=== PATIENT | female | born 1950 | race Caucasian/White ===

== ENCOUNTER 2016-11-14 19:41 | Observation (INO) ==
--- NOTE | 2016-11-14 20:04 | Emergency Department Note ---
Disposition Clinical Impression: Altered mental status Qualifiers: Altered mental status type: unspecified Qualified Code(s): R41.82 - Altered mental status, unspecified Drug ingestion, accidental Qualifiers: Encounter type: initial encounter Qualified Code(s): T50.901A - Poisoning by unspecified drugs, medicaments and biological substances, accidental ( unintentional), initial encounter UTI (urinary tract infection) Qualifiers: Urinary tract infection type: site unspecified Disposition: Admitted As Inpatient Condition: Fair Time of Disposition: 22:19 Altered Mental Status HPI - General Chief Complaint: ED Altered Mental Status Stated Complaint: AMS/OD Time Seen by Provider: 11/14/16 19:45 Source: patient, family, EMS Mode of arrival: EMS Limitations: no limitations Nursing Notes Reviewed: Yes Vital Signs Reviewed: Yes - History of Present Illness HPI Narrative: Patient is a 66-year-old female with past history of hypertension and diabetes. She presents today via EMS due to altered mental status. Her son-in-law accompanies her today and provide some of the history as well. EMS states that the patient was at a friend's house, had a headache, took a loose pill that was in her purse for headache and then began having symptoms of altered mental status, slurred speech. On arrival, patient is oriented 3 but is mildly slurring her words, has pinpoint pupils, she says that she thought she took ibuprofen or Tylenol. She denies any other drug use or alcohol use. 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 She currently denies any numbness, tingling, weakness, chest pain, shortness breath, abdominal pain. She does admit to some mild nausea. - Related Data Allergies Allergy/AdvReac Type Severity Reaction Status Date / Time No Known Allergies Allergy Verified 11/14/16 19:55 All systems ED: reviewed and negative except as stated. Past Medical History - Past Medical History Attestation: Yes The following information was validated with the patient. Medical history: Reports: diabetes, hypertension Psychiatric history: Reports: anxiety - Social History Smoking Status: Never smoker Alcohol use: Reports: none Drug use: Reports: none Physical Exam - General Limitations: other General appearance: other (slurring words, slow to respond to questions but oriented times 3) - Head Head exam: atraumatic, normocephalic, normal inspection - Eye Eye exam: Present: PERRL, EOMI, miosis - ENT ENT exam: normal exam, normal oropharynx, mucous membranes moist - Neck Neck exam: Present: normal inspection, full ROM, trachea midline - Chest Chest inspection: Present: normal inspection, symmetric chest wall rise - Respiratory Respiratory exam: Present: normal lung sounds bilaterally. Absent: respiratory distress, wheezes, stridor, accessory muscle use - Cardiovascular Cardiovascular exam: Present: normal rhythm, tachycardia, normal heart sounds - Abdominal Exam Abdominal exam: Present: soft, Non-Tender. Absent: tenderness, distention, guarding, rebound, rigidity - Extremities Exam Extremities exam: Present: normal inspection, full ROM. Absent: tenderness, pedal edema - Back Exam Back exam: Present: normal inspection, full ROM. Absent: tenderness - Neurological Exam Neurological exam: Present: oriented X3, CN II-XII intact, other (Excessively sleepy on exam). Absent: motor sensory deficit - Psychiatric Psychiatric exam: Present: flat affect, other (Excessively sleepy on exam) - Skin Skin exam: Present: warm, dry, intact, normal color Course Course Narrative: Patient is tachycardic and mildly hypertensive on presentation. No focal neurologic deficits. She is oriented 3. However, she is excessively sleepy. Concern for accidental overdose or other drug use at this time. We will obtain altered mental status including urine drug screen, to the head, urinalysis, basic blood work. EKG shows sinus tachycardia with no acute ST elevation or depression. Asymptomatic at this time other than excessive sleepiness. 22:[address] negative for any acute injury and no abnormality. Chest x-ray negative. Basic blood work not concerning. Urine drug screen negative. Troponin negative, TSH within normal limits. EKG showed sinus tachy. UA shows poss UTI, will give rocephin here. Patient was reevaluated. She is still excessively sleepy on exam. Remains oriented 3 but slow responding. No focal neuro deficits on repeat exam. I discussed current status with family member, and they were agreeable with admitting the patient for observation for altered mental status versus possible drug ingestion. The patient had acute drug ingestion, urine drug screen may not be positive. Hospitalist has been paged for admission. 22:36 Hospitalist accepted, requested rocephin for UTI. Chest X-Ray 11/14/16 19:54 IMPRESSION: 1. No active pulmonary disease. D/ / Pedro Gaines MD / Pedro Gaines MD Interpreting Provider: Pedro Gaines MD Head CT 11/14/16 19:54 IMPRESSION: 1. No acute intracranial abnormality. D/ / Pedro Gaines MD / Pedro Gaines MD Interpreting Provider: Pedro Gaines MD Vital Signs Temperature 97.8 F 11/14/16 19:48 Pulse Rate 122 11/14/16 19:48 Respiratory Rate 12 11/14/16 19:48 Blood Pressure 152/94 11/14/16 19:48 O2 Sat by Pulse Oximetry 95 11/14/16 19:48 Temperature 97.4 F L 11/15/16 02:58 Pulse Rate 95 11/15/16 02:58 Respiratory Rate 14 11/15/16 02:58 Blood Pressure 135/88 11/15/16 02:58 O2 Sat by Pulse Oximetry 93 L 11/15/16 02:58 Oxygen Delivery Oxygen Delivery Room Air Altered Mental Status - [facility] Narrative Medical decision making narrative: Patient is tachycardic and mildly hypertensive on presentation. No focal neurologic deficits. She is oriented 3. However, she is excessively sleepy. Concern for accidental overdose or other drug use at this time. We will obtain altered mental status including urine drug screen, to the head, urinalysis, basic blood work. EKG shows sinus tachycardia with no acute ST elevation or depression. Asymptomatic at this time other than excessive sleepiness. 22:[address] negative for any acute injury and no abnormality. Chest x-ray negative. Basic blood work not concerning. Urine drug screen negative. Troponin negative, TSH within normal limits. EKG showed sinus tachy. UA shows poss UTI, will give rocephin here. Patient was reevaluated. She is still excessively sleepy on exam. Remains oriented 3 but slow responding. No focal neuro deficits on repeat exam. I discussed current status with family member, and they were agreeable with admitting the patient for observation for altered mental status versus possible drug ingestion. The patient had acute drug ingestion, urine drug screen may not be positive. Hospitalist has been paged for admission. 22:36 Hospitalist accepted, requested rocephin for UTI. - Medical Records Medical records reviewed: Yes I reviewed the patient's medical records. - Lab Data Lab results reviewed: Yes I reviewed the patient's lab results. Result diagrams: 11/14/16 21:00 11/15/16 04:52 Lab Results 11/14/16 11/14/16 11/14/16 Range/Units 20:44 20:44 21:00 WBC 10.9 (4.3-11.1) K/mcL RBC 4.38 (3.82-4.97) M/mcL Hgb 12.5 (11.5-15.4) g/dL Hct 38.5 (35.3-44.9) % MCV 87.9 (83.0-100.0) fL MCH 28.5 (28.0-33.3) pg MCHC 32.5 (31.6-35.5) g/dL RDW 13.0 (11.5-14.5) % Plt Count 181 (140-400) K/mcL MPV 10.7 (9.4-12.4) fL Immature Gran % 0.3 (0-4) % Seg Neutrophils % 78.3 % Lymphocytes % 15.5 % Monocytes % 5.0 % Eosinophils % 0.6 % Basophils % 0.3 % Neutrophils # 8.5 (1.6-8.9) K/mcL Lymphocytes # 1.7 (0.6-4.6) K/mcL Monocytes # 0.5 (0.0-1.3) K/mcL Eosinophils # 0.1 (0.0-0.6) K/mcL Basophils # 0.0 (0.0-0.2) K/mcL PT (9.4-12.1) Seconds INR APTT (26.0-36.0) Seconds Sodium (136-145) mEq/L Potassium (3.5-4.5) mEq/L Chloride (98-109) mEq/L Carbon Dioxide (19-29) mEq/L BUN (7-20) mg/dL Creatinine (0.57-1.11) mg/dL Est GFR ( Amer) (> 60) Est GFR (Non-Af Amer) (> 60) BUN/Creatinine Ratio (6-26) Glucose (70-99) mg/dL Calculated Osmolality (280-300) Calcium (8.6-10.8) mg/dL Total Bilirubin (0.2-1.2) mg/dL Direct Bilirubin (0.0-0.5) mg/dL Indirect Bilirubin (0.0-1.2) mg/dL AST (5-34) Units/L ALT (0-55) Units/L Alkaline Phosphatase (38-126) Units/L Troponin I (0-0.03) ng/mL Serum Total Protein (6.0-8.3) g/dL Albumin (3.5-5.0) g/dL Globulin (2.4-3.5) g/dL Albumin/Globulin Ratio (1.1-2.2) TSH (0.350-4.840) mcIU/mL Urine Color Yellow (Yellow) Urine Clarity Cloudy A (Clear) Urine pH 6.0 (5.0-8.0) pH Units Ur Specific [place] 1.018 (1.010-1.025) Urine Protein Negative (Neg-Trace) mg/dL Urine Glucose (UA) >=1000 H (Normal) mg/dL Urine Ketones 15 H (Negative) mg/dL Urine Blood Negative (Negative) Urine Nitrite Positive A (Negative) Urine Bilirubin Negative (Negative) Urine Urobilinogen Normal (Normal) mg/dL Ur Leukocyte Esterase Negative (Negative) Urine Microscopic RBC 0-3 (0-3) per hpf Urine Microscopic WBC 15-30 H (0-3) per hpf Ur Squamous Epith Cells Moderate H (None-Few) per lpf Urine Bacteria Many H (None-Few) per hpf Hyaline Casts Moderate H (None-Few) per lpf Ur Culture Indicated? YES A (NO) Urine Opiates Screen Negative (Tyrxem=765) ng/mL Ur Barbiturates Screen Negative (Ylfyat=440) ng/mL Ur Phencyclidine Scrn Negative (Cutoff=25) ng/mL Ur Amphetamines Screen Negative (Ryuvwh=8345) ng/mL U Benzodiazepines Scrn Negative (Uehbjr=997) ng/mL Urine Cocaine Screen Negative (Cutoff= 300) ng/mL U Marijuana (THC) Screen Negative (Cutoff = 50) ng/mL Ethyl Alcohol (0-10) mg/dL 11/14/16 11/14/16 11/14/16 Range/Units 21:00 21:00 21:00 WBC (4.3-11.1) K/mcL RBC (3.82-4.97) M/mcL Hgb (11.5-15.4) g/dL Hct (35.3-44.9) % MCV (83.0-100.0) fL MCH (28.0-33.3) pg MCHC (31.6-35.5) g/dL RDW (11.5-14.5) % Plt Count (140-400) K/mcL MPV (9.4-12.4) fL Immature Gran % (0-4) % Seg Neutrophils % % Lymphocytes % % Monocytes % % Eosinophils % % Basophils % % Neutrophils # (1.6-8.9) K/mcL Lymphocytes # (0.6-4.6) K/mcL Monocytes # (0.0-1.3) K/mcL Eosinophils # (0.0-0.6) K/mcL Basophils # (0.0-0.2) K/mcL PT 11.4 (9.4-12.1) Seconds INR 1.1 APTT 27.0 (26.0-36.0) Seconds Sodium 140 (136-145) mEq/L Potassium 3.8 (3.5-4.5) mEq/L Chloride 105 (98-109) mEq/L Carbon Dioxide 21 (19-29) mEq/L BUN 13 (7-20) mg/dL Creatinine 0.80 (0.57-1.11) mg/dL Est GFR ( Amer) > 60 (> 60) Est GFR (Non-Af Amer) > 60 (> 60) BUN/Creatinine Ratio 16 (6-26) Glucose 277 H (70-99) mg/dL Calculated Osmolality 300 (280-300) Calcium 9.2 (8.6-10.8) mg/dL Total Bilirubin 0.9 (0.2-1.2) mg/dL Direct Bilirubin 0.3 (0.0-0.5) mg/dL Indirect Bilirubin 0.6 (0.0-1.2) mg/dL AST 14 (5-34) Units/L ALT 12 (0-55) Units/L Alkaline Phosphatase 125 (38-126) Units/L Troponin I 0.00 (0-0.03) ng/mL Serum Total Protein 7.1 (6.0-8.3) g/dL Albumin 3.4 L (3.5-5.0) g/dL Globulin 3.7 H (2.4-3.5) g/dL Albumin/Globulin Ratio 0.9 L (1.1-2.2) TSH 1.767 (0.350-4.840) mcIU/mL Urine Color (Yellow) Urine Clarity (Clear) Urine pH (5.0-8.0) pH Units Ur Specific [place] (1.010-1.025) Urine Protein (Neg-Trace) mg/dL Urine Glucose (UA) (Normal) mg/dL Urine Ketones (Negative) mg/dL Urine Blood (Negative) Urine Nitrite (Negative) Urine Bilirubin (Negative) Urine Urobilinogen (Normal) mg/dL Ur Leukocyte Esterase (Negative) Urine Microscopic RBC (0-3) per hpf Urine Microscopic WBC (0-3) per hpf Ur Squamous Epith Cells (None-Few) per lpf Urine Bacteria (None-Few) per hpf Hyaline Casts (None-Few) per lpf Ur Culture Indicated? (NO) Urine Opiates Screen (Uxgzev=138) ng/mL Ur Barbiturates Screen (Olddny=236) ng/mL Ur Phencyclidine Scrn (Cutoff=25) ng/mL Ur Amphetamines Screen (Efuoqx=0176) ng/mL U Benzodiazepines Scrn (Yalcwa=768) ng/mL Urine Cocaine Screen (Cutoff= 300) ng/mL U Marijuana (THC) Screen (Cutoff = 50) ng/mL Ethyl Alcohol < 10 (0-10) mg/dL - Radiology Data Radiology results reviewed: Yes I reviewed the patient's radiology results. Chest X-Ray 11/14/16 19:54 IMPRESSION: 1. No active pulmonary disease. D/ / Pedro Gaines MD / Pedro Gaines MD Interpreting Provider: Pedro Gaines MD Head CT 11/14/16 19:54 IMPRESSION: 1. No acute intracranial abnormality. D/ / Pedro Gaines MD / Pedro Gaines MD Interpreting Provider: Pedro Gaines MD - EKG Data EKG attestation: Yes I reviewed and interpreted this EKG. EKG results narrative: 11/14/2016 at 19:51. Sinus tachycardia. Rate 119. QTC 418. No acute ST elevation or depression. Left axis deviation. Q waves in 2, aVF. S.B.AKatRKat - S.B.A.RKat Situation: Demographics, MOA Background: Presenting Complaint, Relevant PMH, Meds, & Allergies Assessment: Vital Signs, Course and respsone to treatment, Exam Concerns, Patient/Family Expectation, Pertinant Lab Results, Outstanding Labs Recommendation: Barrier(s) to disposition, Recommendation based on pending studies, treatments, or consults S.B.A.RKat Report Given to: Dr. Valderrama SKatBKatAKatRKat Repor Time: 22:37 Attestation Statement - Attestation Attestation: Dr. White note: Patient seen in conjunction with resident Dr. Damon; please see his chart for complete documentation. I spent [id number] time with the patient and I agree with the patient's treatment and disposition. 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
[2016-11-14 20:57] LABS: Bilirubin,Urine Negative (Negative); Blood,Urine Negative (Negative); Clarity,Urine Cloudy (Clear); Color,Urine Yellow (Yellow); Glucose,Urine (UA) >=1000 mg/dL (Normal); Ketones,Urine 15 mg/dL (Negative); Leukocyte Esterase,Urine Negative (Negative); Nitrite,Urine Positive (Negative); Protein,Urine Negative (Neg-Trace); Specific Gravity,Urine 1.018 (1.010-1.025); Urobilinogen,Urine Normal (Normal)
[2016-11-14 21:00] LABS: Bacteria,Urine Many per hpf (None-Few); Hyaline Casts,Urine Moderate per lpf (None-Few); RBC,Urine 0-3 per hpf (0-3); Squamous Epithelial Cell,Urine Moderate per lpf (None-Few); WBC,Urine 15-30 per hpf (0-3)
[2016-11-14 21:04] LABS: Amphetamine Screen,Urine Negative ng/mL (Cutoff=1000); Barbiturate Screen,Urine Negative ng/mL (Cutoff=200); Benzodiazepines Screen,Urine Negative ng/mL (Cutoff=200); Cannabinoid Screen,Urine Negative ng/mL (Cutoff = 50); Cocaine Screen,Urine Negative ng/mL (Cutoff= 300); Opiate Screen,Urine Negative ng/mL (Cutoff=300); Phencyclidine Screen,Urine Negative ng/mL (Cutoff=25)
[2016-11-14 21:13] LABS: Basophils % 0.3 %; Eosinophils # 0.1 K/mcL (0.0-0.6); Eosinophils % 0.6 %; Hematocrit 38.5 % (35.3-44.9); Hemoglobin 12.5 g/dL (11.5-15.4); INR 1.1; Immature Granulocytes % 0.3 % (0-4); Lymphocytes # 1.7 K/mcL (0.6-4.6); Lymphocytes % 15.5 %; Mean Corpuscular HGB Conc 32.5 g/dL (31.6-35.5); Mean Corpuscular Hemoglobin 28.5 pg (28.0-33.3); Mean Corpuscular Volume 87.9 fL (83.0-100.0); Mean Platelet Volume 10.7 fL (9.4-12.4); Monocytes # 0.5 K/mcL (0.0-1.3); Neutrophils # 8.5 K/mcL (1.6-8.9); Platelet Count 181 K/mcL (140-400); Prothrombin Time 11.4 Seconds (9.4-12.1); Red Blood Count 4.38 M/mcL (3.82-4.97); Segmented Neutrophils % 78.3 %
[2016-11-14 21:21] LABS: Alanine Aminotransferase 12 Units/L (0-55); Albumin 3.4 g/dL (3.5-5.0); Albumin/Globulin Ratio 0.9 (1.1-2.2); Alkaline Phosphatase 125 Units/L (38-126); Aspartate Amino Transferase 14 Units/L (5-34); BUN/Creatinine Ratio 16 (6-26); Bilirubin,Direct 0.3 mg/dL (0.0-0.5); Bilirubin,Indirect 0.6 mg/dL (0.0-1.2); Bilirubin,Total 0.9 mg/dL (0.2-1.2); Blood Urea Nitrogen 13 mg/dL (7-20); Calcium 9.2 mg/dL (8.6-10.8); Carbon Dioxide 21 mEq/L (19-29); Chloride 105 mEq/L (98-109); Globulin 3.7 g/dL (2.4-3.5); Glucose 277 mg/dL (70-99); Osmolality,Calculated 300 (280-300); Potassium 3.8 mEq/L (3.5-4.5); Sodium 140 mEq/L (136-145); Total Protein 7.1 g/dL (6.0-8.3); eGFR For African Americans > 60 (> 60); eGFR For Non-African Americans > 60 (> 60)
[2016-11-14 21:22] LABS: Ethanol < 10 mg/dL (0-10)
[2016-11-14 21:41] LABS: Thyroid Stimulating Hormone 1.767 mcIU/mL (0.350-4.840)
[2016-11-14] MEDS ORDERED: CefTRIAXone 1,000 MG VIAL IM ONE (22:37)
[2016-11-15] MEDS ORDERED: Acetaminophen 325 MG TABLET PO PRN (04:58)
[2016-11-15] MEDS ORDERED: Ondansetron 4 MG/2 ML VIAL IVP PRN (04:58)
[2016-11-15] MEDS ORDERED: Naloxone 0.4 MG/ML INJ IVP PRN (04:58)
--- NOTE | 2016-11-15 05:14 | Internal Med History&Physical ---
<TimoBladimir licona - Last Filed: 11/15/16 04:45> Date of Encounter: 11/15/16 Time of Encounter: 04:00 Assessment and Plan (1) Altered mental status Current visit: Yes Status: Acute Patient had an earlier episode of slurred speech, drowsyness, and altered mental status. Upon examination, patient was conversing normally and answering questions appropriately. Etiology unclear at this time- may be due to UTI. Ceftriaxone 1g Q24 hours Consider undiagnosed underlying medical problem as an etiology, as patient has history of non compliance and has not been to see doctor in three years. A1C pending. TSH normal. Lipid panel pending. Electrolytes pending with morning labs. Patient was told she must follow up with PCP outpatient. Qualifiers: Altered mental status type: unspecified Qualified Code(s): R41.82 - Altered mental status, unspecified (2) UTI (urinary tract infection) Current visit: Yes Status: Acute Patient's urinalysis showed evidence of UTI. Patient not showing any signs of sepsis at this time. Ceftriaxone 1g Q24 hours. Qualifiers: Urinary tract infection type: site unspecified Hematuria presence: without hematuria Qualified Code(s): N39.0 - Urinary tract infection, site not specified (3) Hyperglycemia Current visit: Yes Status: Acute Upon arrival to ED, patient's blood glucose was 277. Continue to monitor ACHS Obtained A1C. patient counseled on importance of follow up with PCP and glucose control. consult to multimedia teacher. (4) DVT prophylaxis Current visit: Yes Status: Acute Heparin SQ Internal Medicine - H&P: HPI Chief complaint: AMS Admitted From: Emergency Dept Plans for Post Hospital Care: Home History of present illness: PCP: none Ms. Pruitt is a 66 year old female with PMHx of chronic joint pain, HTN (not on any home meds due to non compliance). She states that she has been checked for diabetes in the past, and her lab values were borderline. Her PCP told her to take Metformin, but didn't want to take it anymore so she stopped. She has not been to the doctor in about three years. Patient states that earlier in the day, she went to visit her neighbor and had a headache so she ingested a loose pill from her purse that she thought was ibuprofen or Tylenol. Soon after doing so, she called her daughter on the phone , and her daughter had told her that she noticed the patient sounding very drowsy over the phone. The patient reported that she was so tired that she couldn't stand up, and she felt dizzy. She had altered mental status and slurred speech. She was unable to walk as well. Patient denies syncope. Her last meal was earlier that morning. She denies nausea, vomiting, reports chills. On exam, patient denies chest pain, shortness of breath, fever, nausea. She denies blood in stool, and denies hematuria. She has excess thirst occasionally, denies polyuria. States that her hair has been thinning over the past several years. She denies numbness/tingling sensation. Her weight fluctates constantly. She lost thirty pounds last year, but has gained it all back. She says that she has had water retention most of her life, but she is not sure why. Social Hx: twice. lives alone. Denies tobacco use, but states that she has been exposed to second hand smoke her whole life at work and at home. Denies alcohol and illicit drug use. When asked about drug use, she stated that she has no history and would not consider using illicit drugs. Family Hx: mother at 92 of old age, had heart disease. Father at 61 from heart problems, and was an alcoholic. She has one daughter who is overweight. Surgical Hx: denies. Past Med Surg Social Fam HX - Past Medical History Medical history: arthritis, diabetes, hypertension Psychiatric history: anxiety - Past Surgical History Surgical History: no surgical history - Social History Smoking Status: Never smoker Alcohol use: none Drug use: none - Family History Mother Hx Family Cardiac Disorders: Yes (sc) Internal Medicine - H&P: Meds No Known Home Drugs 11/14/16 [History] Allergies No Known Allergies Allergy (Verified 11/14/16 19:55) All Systems PM: A 10-system review of systems was performed and is negative for pertinent findings except as documented above in the HPI. - Constitutional Constitutional: chills, lethargy, no fever(s), no falls - EENT Eyes: change in vision Nose, mouth and throat: dry mouth - Cardiovascular Cardiovascular ROS IM: no chest pain, no diaphoresis, no dyspnea, no syncope - Respiratory Respiratory: no cough, no dyspnea - Gastrointestinal Gastrointestinal: no change in bowel habits, no hematemesis, no hematochezia, no melena, no vomiting - Neurological Neurological ROS: no abnormal movements, no paresthesias - Endocrine Endocrine IM: cold intolerance, no polydipsia - Constitutional Vitals: Temp Pulse Resp BP Pulse Ox 97.4 F L 95 14 135/88 93 L 11/15/16 02:58 11/15/16 02:58 11/15/16 02:58 11/15/16 02:58 11/15/16 02:58 General appearance: Present: A&O X 3, pleasant, no acute distress, obese, answers questions appropriately - Head Head exam: Present: atraumatic, normocephalic - Neck Neck exam general surgery: Present: supple, trachea midline. Absent: thyromegaly - Respiratory Respiratory exam: Present: CTAB - Cardiovascular Cardiovascular exam: Present: RRR, +S1, +S2 - GI/Abdominal GI/Abdominal exam: Present: normal bowel sounds, soft. Absent: tenderness - Extremities Exam Extremities exam: Absent: cyanotic Additional comments: lower extremity swelling noted. mild upper extremity swelling as well. - Neurological Exam Neurological exam: Present: alert, oriented X3, no focal deficits, strengths equal and symetr throughout. Absent: speech deficit Internal Med - H&P Results - Labs CBC & Chem 7: 11/14/16 21:00 11/14/16 21:00 <Heraclio Valderrama - Last Filed: 11/16/16 00:01> Date of Encounter: 11/15/16 Internal Medicine - H&P: HPI History of present illness: Ms. Pruitt is a 66 year old female All Systems PM: A 10-system review of systems was performed and is negative for pertinent findings except as documented above in the HPI. - Constitutional Vitals: Temp Pulse Resp BP Pulse Ox 98.2 F 92 16 168/91 97 11/15/16 19:46 11/15/16 19:46 11/15/16 19:46 11/15/16 19:46 11/15/16 21:55 Internal Med - H&P Results - Labs CBC & Chem 7: 11/14/16 21:00 11/15/16 04:52 Labs: BMP 11/15/16 04:52 Sodium 140 Potassium 3.9 Chloride 105 Carbon Dioxide 25 BUN 11 Creatinine 0.73 Glucose 164 H Calcium 9.1 - Attending Attestation I have personally evaluated the pt and details discussed witht the Special Delivery Mail Carrier/ Resident. I agree with H&P except as mentioned below. 66 Y/F apparently took unknown pill, from her bag to relieve headache. AMS following ingestion. Apparently she was given naloxone, by EMS without significant change. Urine drug screen was negative. Pt was drowsy, with AMS in the ER. Improved at the time of my evaluation. O/E no gross localizing deficits. CT head and CXR negative. UA is abnormal - positive for nitrite, suspected UTI- on ceftriaxone. cultures pending.
[2016-11-15 05:29] LABS: Hemoglobin A1C 7.3 %
[2016-11-15 05:39] LABS: BUN/Creatinine Ratio 15 (6-26); Blood Urea Nitrogen 11 mg/dL (7-20); Calcium 9.1 mg/dL (8.6-10.8); Carbon Dioxide 25 mEq/L (19-29); Chloride 105 mEq/L (98-109); Chol/HDL Ratio 5.1 (0-4.9); Cholesterol 224 mg/dL (< 200); Glucose 164 mg/dL (70-99); HDL Cholesterol 44 mg/dL (40-59); LDL Cholesterol,Calculated 136 mg/dL (0-99); Magnesium 1.8 mg/dL (1.6-2.6); Osmolality,Calculated 293 (280-300); Phosphorous 3.2 mg/dL (2.3-4.7); Potassium 3.9 mEq/L (3.5-4.5); Sodium 140 mEq/L (136-145); Triglycerides 218 mg/dL (< 150); eGFR For African Americans > 60 (> 60); eGFR For Non-African Americans > 60 (> 60)
[2016-11-15] MEDS: *HR* Heparin 5,000 UNIT/ML VIAL SQ SCH ×2 (06:27→18:02)
[2016-11-15] MEDS ORDERED: *HR* Heparin 5,000 UNIT/ML VIAL SQ SCH ×2 (07:00)
[2016-11-15] MEDS ORDERED: 0.9 % Sodium Chloride 500 ML IVC ONE (14:24)
[2016-11-15] MEDS ORDERED: 0.9 % Sodium Chloride 1,000 ML IVC SCH (14:30)
--- NOTE | 2016-11-15 14:33 | Event Note ---
Date of Encounter: 11/15/16 Time of Encounter: 14:32 Patient is continuing to do better. However, her orthostatic blood pressure was positive for orthostatic hypotension. We will treat with IV hydration for now. Patient growing gram-negative rods in urine. On ceftriaxone. Await culture results.
[2016-11-15] MEDS ORDERED: *HR* Dextrose 50 % in Water (Syg) 50 ML SYRINGE IVP PRN (14:34)
[2016-11-15] MEDS ORDERED: D5% in Water 1,000 ML IV PRN (14:34)
[2016-11-15] MEDS ORDERED: Dextrose Gel 15 GM PO PRN ×2 (14:34)
[2016-11-15] MEDS: Insulin LISPRO 300 UNITS/3 ML VIAL SQ SCH (17:15)
[2016-11-15] MEDS ORDERED: Insulin LISPRO 300 UNITS/3 ML VIAL SQ SCH (21:00)
--- NOTE | 2016-11-15 21:25 | Electrocardiograph Report ---
[facility] Test Date: 2016-11-14 Pat Name: Patt Pruitt Department: 105 Room: 3B55 Gender: F [employer]: : [id number] Requested By: Epi Damon Order Number: [id number] Reading MD: Yudith Campbell Measurements Intervals [place] Rate: 119 P: NC: 0 QRS: -20 QRSD: 93 T: 11 QT: 347 QTc: 418 Interpretive Statements SINUS TACHYCARDIA MINIMAL VOLTAGE CRITERIA FOR LVH LEFTWARD AXIS INFERIOR MYOCARDIAL INFARCTION, PROBABLY OLD Electronically Signed On 11-15-2016 21:23:46 EST by Yudith Campbell
[2016-11-16] MEDS: *HR* Heparin 5,000 UNIT/ML VIAL SQ SCH (06:38)
[2016-11-16 07:16] VITALS: BP 153/94
[2016-11-16] MEDS: Insulin LISPRO 300 UNITS/3 ML VIAL SQ SCH (09:29)
--- NOTE | 2016-11-16 10:32 | Discharge Summary ---
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 use Qualified Code(s): E11.65 - Type 2 diabetes mellitus with hyperglycemia (3) Drug ingestion, accidental Priority: Secondary Status: Acute Qualifiers: Encounter type: initial encounter Qualified Code(s): T50.901A - Poisoning by unspecified drugs, medicaments and biological substances, accidental ( unintentional), initial encounter (4) UTI (urinary tract infection) Priority: Secondary Status: Acute Qualifiers: Urinary tract infection type: acute cystitis Hematuria presence: without hematuria Qualified Code(s): N30.00 - Acute cystitis without hematuria (5) Hyperlipidemia Priority: Secondary Status: Chronic Qualifiers: Hyperlipidemia type: mixed hyperlipidemia Qualified Code(s): E78.2 - Mixed hyperlipidemia - Discharge Medications Prescriptions: Cephalexin [Keflex] 500 mg PO BID #10 capsule Lisinopril [Zestril] 10 mg PO DAILY #30 tablet Meclizine [Antivert] 12.5 mg PO TID PRN #20 tablet PRN Reason: Vertigo Metformin [Glucophage] 500 mg PO BIDWM #30 tablet Pravastatin Sodium [Pravachol] 20 mg PO HS #30 tablet Home Medications: Cephalexin [Keflex] 500 mg PO BID #10 capsule 11/16/16 [Rx] Lisinopril [Zestril] 10 mg PO DAILY #30 tablet 11/16/16 [Rx] Meclizine [Antivert] 12.5 mg PO TID PRN #20 tablet 11/16/16 [Rx] Metformin [Glucophage] 500 mg PO BIDWM #30 tablet 11/16/16 [Rx] Pravastatin Sodium [Pravachol] 20 mg PO HS #30 tablet 11/16/16 [Rx] Allergies/Adverse Reactions: Allergies No Known Allergies Allergy (Verified 11/14/16 19:55) Date of admission: 11/14/16 22:41 Primary care physician: PCP NO Consults: 11/15/16 05:51 Consult to Internal Controls Analyst [CONS] Routine Comment: 11/15/16 11:19 PT [Consult to Physical Therapy] [CONS] Routine Comment: Evaluate, develop and implement POC 11/15/16 11:20 OT [Consult to Occupational Therapy] [CONS] Routine Comment: Evaluate, develop and implement POC 11/15/16 14:23 Consult to Manager Protein [CONS] Routine Reason for SW Consult: Resources for counseling for depression Discharging clinician: Verona Holley Anticipated date of discharge: 11/16/16 - Patient Status Disposition: Home, Self-Care Condition: Good Functional capacity at discharge: independent ambulation Overall status at discharge: patient is progressing back to baseline - Discharge Instructions Instructions: Urinary Tract Infection in Women (DC) Follow Up With: NO,PCP [Primary Care Provider] - - Diet and Activity Activity: increase activity as tolerated Diet: diabetic diet, low fat, low cholesterol, low salt diet Hospital course: Ms. Pruitt is a 66 year old female with history of essential hypertension, diabetes who was observed in hospital after presenting with altered mental status and dizziness. Patient has been having episodes of dizziness for a while but this time she will was also feeling very weak and had some slurred speech. She was evaluated in the ER with the CT scan of the head which did not show any acute stroke. Patient's symptoms resolved soon after presentation. She was treated for an acute urinary tract infection and was given intravenous fluids. Her urine cultures positive for Escherichia coli. Most of her acute symptoms have subsided. She does report episodes of dizziness at home which appears to suggestive of what I go. We will start her on treatment with meclizine as needed. She may be referred to ENT specialist for further evaluation as outpatient. Patient has not been on any medications for her diabetes. Her A1c is 7.3%. We will start metformin. Her blood pressure has also been elevated. The patient has been started on lisinopril to treat this. - Time Spent with Patient Total time spent providing and/or coordinating discharge services: Greater than 30 minutes (35 min) - Constitutional Vitals: Temp Pulse Resp BP Pulse Ox 97.8 F 82 16 153/94 93 L 11/16/16 07:11 11/16/16 07:11 11/16/16 07:11 11/16/16 07:11 11/16/16 07:11 General appearance: Present: A&O X 3, pleasant, no acute distress, obese, answers questions appropriately - Attending Attestation This document has been at least partially created by NGI recognition technology by Dr. Holley. Errors in grammar, wording or other phrases may exist. If errors are found after the documentation is signed, they will be addressed individually in the addendum section of this document when appropriate.
== END 2016-11-16 13:20 | disposition home or self-care (01) ==
LOC: 3BNU 19:41 → EMEROO 19:41 → SUATTDRO 22:41 → 3BNU 11-15 00:17
PROVIDERS: ADMIT Internal Medicine; ATTEND Internal Medicine